=== PATIENT | female | born 1970 | race Hispanic/Latino ===

== ENCOUNTER 2017-12-15 16:18 | Emergency (ER) | payer BC ==
[~2017-12-15] VITALS: Ht 162.6 cm; Wt 54.4 kg
[2017-12-15] MEDS ORDERED: MORPHINE SULFATE 2 MG/ML SYR IV STA (16:40)
[2017-12-15] MEDS ORDERED: ONDANSETRON HCL INJ 2 MG/ML VIAL IV STA (16:40)
[2017-12-15] MEDS ORDERED: SODIUM CHLORIDE 0.9% 1000ML 1,000 ML IV ONE (16:45)
[2017-12-15] MEDS ORDERED: SOD PHOSPHATE/SOD BIPHOSPHATE ENEMA 132 ML BTL PR ONE (17:45)
[2017-12-15] MEDS ORDERED: ACETAMINOPHEN 325 MG TAB PO ONE (18:00)
[2017-12-15] MEDS ORDERED: IOPAMIDOL 370 MG/ML 200 ML INFUS..BTL INJ ONE (18:15)
--- NOTE | 2017-12-15 18:22 | Diagnostic Imaging Report ---
EXAMINATION: CT of the abdomen and pelvis with contrast. TECHNIQUE: Helical CT images of the abdomen and pelvis were performed from the lung bases to the lesser trochanters after the intravenous administration of 150 cc of Isovue 300 and the oral administration of none. Coronal and sagittal reformatted images were obtained.Dose modulation, iterative reconstruction, and/or weight based adjustment of the mA/kV was utilized to reduce the radiation dose to as low as reasonably achievable. COMPARISON: None. CLINICAL HISTORY:Abdominal pain DISCUSSION: ABDOMEN/PELVIS: LOWER THORAX:Unremarkable. HEPATOBILIARY: No focal hepatic lesions. No intra-or extrahepatic biliary ductal dilation. The gallbladder is normal. SPLEEN: No splenomegaly. PANCREAS: No focal masses or ductal dilatation. ADRENALS: No adrenal nodules. KIDNEYS/URETERS: No hydronephrosis, stones, or solid mass lesions. PELVIC ORGANS/BLADDER: 0.9 cm hypodensity within the uterus may reflect fibroid. PERITONEUM/RETROPERITONEUM: No free air or fluid. LYMPH NODES: No intra-abdominal, retroperitoneal, pelvic or inguinal lymphadenopathy. VESSELS: The celiac trunk,superior and inferior mesenteric and bilateral renal arteries are patent The portal, superior mesenteric and splenic veins are patent. GI TRACT: No distention or wall thickening. BONES AND SOFT TISSUE: No bony destructive lesions. Soft tissue stranding throughout the anterior upper abdomen and pelvis with soft tissue gas. Anterior lower pelvic presumed drain. Soft tissue edema and stranding throughout the posterior abdomen and pelvis. Breast augmentation. IMPRESSION: Subcutaneous soft tissue stranding, edema, and anterior subcutaneous gas. Correlate with surgical history. No acute CT finding within the abdomen or pelvis. Signed by: Dr. Ernie Frazier M.D. on 12/15/2017 6:18 PM
== END 2017-12-15 18:43 | disposition home or self-care (01) ==
LOC: FSED 16:18
DX: K59.00 Constipation, unspecified (principal); R10.33 Periumbilical pain; D64.9 Anemia, unspecified
CPT/HCPCS: 74177; 80048; 80076; 81003; 81025; 85025; 99285; J2270; J2405; J7030; Q9967